=== PATIENT | female | born 1955 | race Caucasian/White ===

== ENCOUNTER 2019-04-07 10:13 | Outpatient (CLI) | payer OTHER ==
--- NOTE | 2019-04-07 14:53 | PET ---
PET CT SKULL TO MID THIGH: COMPARISON: None. HISTORY: Pulmonary nodule. TECHNIQUE: A PET/CT was performed from the skull to the mid thigh after administration of 11.8 millicuries of F- 18 FDG. Evaluation was performed on a [employer] workstation. FINDINGS: NECK: No areas of hypermetabolic activity CHEST: Multifocal hypermetabolic activity throughout the lungs bilaterally is present, including focal pulmo nary nodule, left lower lobe, with SUV of 9.6. There is abnormal hypermetabolic activity of the left perihilar region, and extending to the posterior left infrahilar region, maximum SUV of 5. Right hilar hypermetabolic activity demonstrates SUV maximum of 5. Numerous small nodules throughout both lungs are present, below threshold for PET resolution. ABDOMEN/PELVIS: Diffuse nonspecific hypermetabolism of the spleen. Hypermetabolic focus, maximum SUV 2.6 at the left iliac chain localizes to a 9 mm lymph node. SKELETON: Mild increased metabolic activity, although not hypermetabolic is present at the posterior aspect of the right scapula, SUV 2.0, punctate in size. Hypermetabolic focus, 4.1 SUV involves the left ilium. Hypermetabolic focus, SUV 4, involves sacrum, to left of midline. IMPRESSION: 1. Hypermetabolic activity involving left lower lobe pulmonary nodule, as well as multifocal hyperme tabolic activity of the bilateral hemithoraces, related to bilateral hilar adenopathy and as well as pulmonary parenchymal nodularity, diffusely throughout the lungs. While a component of findings ma y relate to atypical infection, malignancy is the diagnosis of exclusion and follow-up to complete resolution with CT thorax is recommended. 2. Multifocal hypermetabolic foci of the osseous structures as above, concerning for metastatic dise ase. 3. Hypermetabolic left iliac chain lymph node. 4. Nonspecific diffuse hypermetabolism of the spleen. Transcribed Date/Time: 04/07/2019 3:26 PM
== END 2019-04-07 10:14 | disposition home or self-care (01) ==
LOC: PET 10:13
PROVIDERS: ATTEND Internal Medicine Critical Care Medicine
DX: R91.1 Solitary pulmonary nodule (principal); R59.0 Localized enlarged lymph nodes; D73.89 Other diseases of spleen
CPT/HCPCS: 78815; A9552

== ENCOUNTER → 2019-04-26 | Day surgery (SDC) | payer OTHER ==
[2019-04-26 15:25] LABS: #Basophils 0.1 thou/uL (0.0-0.2); #Eosinphils 0.3 thou/uL (0.0-0.7); #Lymphocytes 1.1 thou/uL (1.20-3.40); #Monocytes 0.4 thou/uL (0.11-0.59); #Neutrophils 2.3 thou/uL (1.40-6.50); %Basophils 1.5 % (0.0-1.0); %Eosinophils 7.1 % (0.0-10.0); %Lymphocytes 26.7 % (21.0-51.0); %Monocytes 10.6 % (0.0-10.0); %Neutrophils 54.1 % (42.0-75.0); Hemoglobin 14.1 g/dL (12.0-16.0); INR-International Normal Ratio 0.9; Mean Corpuscular HGB CONC 33.6 g/dL (32.0-36.0); Mean Corpuscular Hemoglobin 28.4 pg (27.0-31.0); Mean Corpuscular Volume 84.6 fL (78.0-98.0); Mean Platelet Volume 7.9 fL (7.4-10.4); PTT 31.9 SEC (22.9-36.1); Platelet Count 268 thou/uL (130-400); RBC Distribution Width 12.5 % (11.5-14.5); Red Blood Cell (RBC) Count 4.95 mill/uL (4.20-5.40); White Blood Cell (WBC) Count 4.2 thou/uL (4.8-10.8)
== END ==
LOC: CT 08:49
PROVIDERS: ATTEND Internal Medicine Critical Care Medicine
DX: R91.1 Solitary pulmonary nodule (principal); Z53.09 Procedure and treatment not carried out because of other contraindication
CPT/HCPCS: 36415; 85025; 85610; 85730

== ENCOUNTER 2019-05-08 09:15 | Day surgery (SDC) | payer OTHER ==
[2019-05-05 15:53] VITALS: BMI 29.7
--- NOTE | 2019-05-08 11:53 | CT ---
CT GUIDED LEFT LUNG NODULE BIOPSY: INDICATION: Hypermetabolic left lower lobe lung nodule. TECHNIQUE: Informed consent was obtained. Preprocedure CT images were performed identifying the suspicious nodul e in the posterior left lower lobe. The site was marked. The site was prepped and draped in the usual sterile fashion. Patient underwent conscious sedation under guidance of the radiology nurse. Dany [place]ada received 1 mg of IV Versed and 75 mcg of IV fentanyl. Site was anesthetized utilizing buffered 1% lidocaine. A small dermatotomy was made. A 19-gauge trocar needle was guided down to the lesion by CT. Pathology was on-site to verify adequacy of tissue sampling. Three separate core samples were obtained of the lesion under CT fluoroscopic guidance. Two of the core samples were subm itted in formalin solution with the pathologist. An additional was submitted in a sterile saline solution for possible culture or need for flow cytometry. The needle was removed after the last core sample was obtained. Postprocedure images demonstrated a very tiny amount of pneumothorax overlying the biopsy site. A sma ll amount of hemorrhage is seen surrounding the lesion. Patient tolerated the biopsy without difficulty. IMPRESSION: Successful CT-guided left lower lobe lung nodule biopsy. Patient is to have a follow-up chest radiogr aph in 30 minutes following the procedure to confirm stability of the very tiny left-sided pneumothorax. Transcribed Date/Time: 05/08/2019 11:58 AM
--- NOTE | 2019-05-08 12:02 | RAD ---
EXAM: XR Chest Insp/Exp DATE: 05/08/2019 11:45 AM INDICATION: Status post lung biopsy with small left pneumothorax COMPARISON: CT left lower lobe lung nodule biopsy dated May 11, 2019 FINDING: Scattered areas of perihilar reticular nodularity persists. No large pneumothorax is eviden t. No pleural effusion is demonstrated. No acute osseous abnormality is noted. IMPRESSION:No pneumothorax.
== END 2019-05-08 14:50 | disposition home or self-care (01) ==
LOC: CT 09:15
PROVIDERS: ATTEND Internal Medicine Critical Care Medicine
PROC: 0BBJ3ZX Excision of Left Lower Lung Lobe, Percutaneous Approach, Diagnostic (ICD-10-PCS; principal; 2019-05-08)
DX: J84.10 Pulmonary fibrosis, unspecified (principal); R91.8 Other nonspecific abnormal finding of lung field; E03.9 Hypothyroidism, unspecified; F32.9 Major depressive disorder, single episode, unspecified; Z79.82 Long term (current) use of aspirin; Z79.899 Other long term (current) drug therapy; Z88.8 Allergy status to other drugs, medicaments and biological substances
CPT/HCPCS: 32405; 71045; 77002; 88305; 88312; 88333; 88334